=== PATIENT | female | born 1955 | race Caucasian/White ===

== ENCOUNTER → 2023-09-09 06:53 | Outpatient (REF) | payer BC, SELFPAY | LOC: HWRAD 06:53 | PROVIDERS: ATTENDING PHYSICIAN Obstetrics & Gynecology; FAMILY PHYSICIAN Nurse Practitioner Adult Health | DX: K82.4 Cholesterolosis of gallbladder (principal); Z12.31 Encounter for screening mammogram for malignant neoplasm of breast | CPT/HCPCS: 76700; 77063; 77067 ==

== ENCOUNTER → 2023-12-04 07:32 | Outpatient (REF) | payer BC, SELFPAY | LOC: WDC 07:32 | PROVIDERS: ATTENDING PHYSICIAN Obstetrics & Gynecology; FAMILY PHYSICIAN Nurse Practitioner Adult Health | DX: R92.2 Inconclusive mammogram (principal); R92.30 Dense breasts, unspecified | CPT/HCPCS: 76641 ==

== ENCOUNTER → 2024-09-13 07:46 | Outpatient (REF) | payer BC, SELFPAY | LOC: HWRAD 07:46 | PROVIDERS: ATTENDING PHYSICIAN Nurse Practitioner Adult Health; REFERRING PHYSICIAN Obstetrics & Gynecology | DX: Z78.0 Asymptomatic menopausal state (principal); K82.4 Cholesterolosis of gallbladder; Z12.31 Encounter for screening mammogram for malignant neoplasm of breast | CPT/HCPCS: 76700; 77063; 77067; 77080 ==